=== PATIENT | female | born 1975 | race Caucasian/White ===

== ENCOUNTER 2017-04-19 17:19 | Emergency (ER) | payer BC ==
[2017-04-19 17:29] VITALS: BP 106/79
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
[2017-04-19 18:24] LABS: CHLORIDE,CL 103 mEq/L (98-106); SODIUM,NA 141 mEq/L (136-145)
[2017-04-19] MEDS: Lactated Ringers 1,000 ML IV SCH (18:37)
== END 2017-04-19 19:52 | disposition home or self-care (01) ==
LOC: CC.ED 17:19
DX: R55 Syncope and collapse (principal); F32.9 Major depressive disorder, single episode, unspecified; Z88.1 Allergy status to other antibiotic agents; Z79.899 Other long term (current) drug therapy
CPT/HCPCS: 36415; 70450; 80053; 81001; 81025; 82550; 83615; 84443; 84484; 85025; 86140; 96360; 99284; J7120